=== PATIENT | male | born 1950 | race Caucasian/White ===

== ENCOUNTER 2017-01-24 06:07 | Inpatient (IN) | payer BC ==
--- NOTE | 2017-01-05 11:56 | PAT Medication Instructions ---
Service Date Jan 05, 2017. Current Home Medication List Aspirin (Aspirin Ec), 81 MG PO QAM Cholecalciferol (Vitamin D3), 1 TAB PO QAM Ibuprofen Tab (Advil), 400 MG PO PRN Lisinopril/Hctz (Zestoretic 20MG/12.5MG), 1 TAB PO BID Multivitamin (Multivitamin), 1 TAB PO QAM Omeprazole (Prilosec), 20 MG PO QAM Simvastatin (Zocor), 20 MG PO QPM Tramadol (Ultram), 50 MG PO QAM Medication Instructions For Your Scheduled Surgery - CHECK WITH YOUR SURGEON FOR INSTRUCTIONS FOR: Ibuprofen Tab (Advil), 400 MG PO PRN - Hold the following medications 24 hours prior to surgery--DO NOT TAKE THE NIGHT BEFORE OR THE MORNING OF THE SURGERY: Lisinopril/Hctz (Zestoretic 20MG/12.5MG), 1 TAB PO BID - Hold the following medications the morning of the surgery: Multivitamin (Multivitamin), 1 TAB PO QAM Cholecalciferol (Vitamin D3), 1 TAB PO QAM - Take the following medications the morning of surgery with a sip of water: Tramadol (Ultram), 50 MG PO QAM (if needed, can take up to four hours before surgery) Omeprazole (Prilosec), 20 MG PO QAM Aspirin (Aspirin Ec), 81 MG PO QAM - Take the following medications as scheduled the night before surgery: Simvastatin (Zocor), 20 MG PO QPM If you have any questions please call us at [phone] or [phone] or [phone]
--- NOTE | 2017-01-05 13:11 | DIAGNOSTIC IMAGING REPORT ---
CHEST PREADMISSION(PA/LAT) CLINICAL HISTORY: PAT preoperative evaluation COMPARISON STUDY: 04/30/2013 FINDINGS: The bones soft tissues and hemidiaphragms are normal. The cardiomediastinal silhouette is normal. The lungs are clear. The pulmonary vasculature is normal. IMPRESSION: Negative chest. The above report was generated using voice recognition software. It may contain grammatical, syntax or spelling errors. Electronically signed by: Andry Sparks M.D. 01/05/2017 1:10 PM Dictated Date/Time: 01/05/2017 1:10 PM
[2017-01-05 13:12] LABS: BASO % 0.7 %; BASO ABS # 0.06 K/uL (0-0.2); COMPLETE YES; EOS % 4.1 %; HEMATOCRIT 43.9 % (42-52); IG% 0.5 %; LYMPH % 39.3 %; LYMPH ABS # 3.23 K/uL (1.2-3.4); MEAN CELL VOLUME 86.6 fL (80-100); MEAN CORPUSCULAR HEMOGLOBIN 29.6 pg (25-34); MEAN CORPUSCULAR HGB CONC 34.2 g/dl (32-36); MEAN PLATELET VOLUME 11.9 fL (7.4-10.4); MONO % 7.1 %; NEUT % 48.3 %; PLATELET COUNT 204 K/uL (130-400); RED BLOOD COUNT 5.07 M/uL (4.7-6.1); WHITE BLOOD COUNT 8.21 K/uL (4.8-10.8)
[2017-01-05 13:23] LABS: CALCIUM 9.3 mg/dl (8.5-10.1); CREATININE 1.04 mg/dl (0.60-1.40); POTASSIUM 3.7 mmol/L (3.5-5.1)
[2017-01-05 13:32] LABS: URINE APPEARANCE CLEAR (CLEAR); URINE BILIRUBIN NEG (NEG); URINE COLOR YELLOW; URINE NITRITE NEG (NEG); URINE PH 7.5 (4.5-7.5); URINE SPECIFIC GRAVITY 1.018 (1.000-1.030); UROBILINOGEN NEG (NEG); ZZUR CULT IF INDIC CLEAN CATCH NO
[2017-01-05 13:38] LABS: MANUAL MICROSCOPIC REQUIRED? NO; REVIEW REQ? NO
[~2017-01-24] VITALS: Ht 177.8 cm; Wt 94.4 kg
[2017-01-24] VITALS (10 sets, daily range): BP systolic 99–151; BP diastolic 66–84; PULSE 60–67; TEMP 36.3–36.7; O2SAT 92–100; Ht 177.8 cm; Wt 94.4 kg
[~2017-01-24 06:07] MED LIST: ASPI81TA28 PO; CEFAZOLIN 2000MG IV PUSH 10 ML IV SCH; CHOL1000 PO; IBUP-103 PO; LACTATED RINGER'S 1000ML 1,000 ML IV SCH; LISI-787 PO; MULT-506 PO; PRLSR20 PO; SIMV20TA2 PO; TRAM-10 PO
[2017-01-24] MEDS ORDERED: MIDAZOLAM HCL 1 MG/ML 2ML VIAL ONE (06:29)
[2017-01-24] MEDS ORDERED: FENTANYL CITRATE INJ 50 MCG/1 ML 2 ML VIAL ONE ×3 (06:29→09:13)
[2017-01-24] MEDS ORDERED: BACITRACIN 50000 UNIT VIAL ONE (06:58)
[2017-01-24] MEDS ORDERED: BUPIVACAINE/EPINEPHRINE 0.5% MPF 1:200,000 30 ML VIAL ONE (06:58)
[2017-01-24] MEDS ORDERED: ONDANSETRON INJ 2 MG/ML 2 ML VIAL IV PRN ×2 (07:00→10:00)
[2017-01-24] MEDS ORDERED: ATROPINE SULFATE 0.1 MG/ML 5ML SYR IV PRN (07:00)
[2017-01-24] MEDS ORDERED: FENTANYL CITRATE INJ 50 MCG/1 ML 2 ML VIAL IV PRN (07:00)
[2017-01-24] MEDS ORDERED: EpHEDrine SULFATE INJ 50 MG/ML AMP IV PRN (07:00)
--- NOTE | 2017-01-24 07:26 | History & Physical Bridge Note ---
H&P Re-Evaluation Bridge Note: I have examined the patient, reviewed the History & Physical and in the interval since the performance of the History & Physical I have noted the following changes of clinical significance: No changes noted
--- NOTE | 2017-01-24 07:27 | History and Physical ---
History & Physical Date Jan 24, 2017. Chief Complaint Back and leg pain History of Present Illness The patient is a 66 year old male with complaints of back and leg pain Past Medical/Surgical History Medical Problems: (1) Hyperlipidemia (2) Hypertension (3) Kidney stones (4) Right knee DJD Surgical Problems: (1) History of hernia repair Additional History Hepatic Disease: No Endocrine Disorder: No Kidney Disease: No Hypertension: Yes Heart Disease: No Bleeding Tendencies: No Infectious Diseases: No Allergies Coded Allergies: Fish Allergy (Verified Allergy, Severe, ANAPHYLAXIS, 01/24/17) Hydrocodone (Verified Allergy, Intermediate, DIFFICULTY BREATHING,SOB, ) Cat Dander (Verified Allergy, Mild, SNEEZING RED EYES, 01/24/17) Home Medications Scheduled Aspirin (Aspirin Ec), 81 MG PO QAM Cholecalciferol (Vitamin D3), 1 TAB PO QAM Ibuprofen Tab (Advil), 400 MG PO PRN Lisinopril/Hctz (Zestoretic 20MG/12.5MG), 1 TAB PO BID Multivitamin (Multivitamin), 1 TAB PO QAM Omeprazole (Prilosec), 20 MG PO QAM Simvastatin (Zocor), 20 MG PO QPM Tramadol (Ultram), 50 MG PO QAM Physical Examination Skin: warm/dry, no rash Eyes: normal inspection, EOMI, sclerae normal ENT: normal ENT inspection, pharynx normal Head: normocephalic, atraumatic Neck: supple, no adenopathy, trachea midline Respiratory/Chest: lungs clear, normal breath sounds, no respiratory distress Cardiovascular: regular rate, rhythm, no edema, no murmur Abdomen / GI: normal bowel sounds, non tender Back: normal inspection Extremities: normal inspection, normal range of motion Neurologic/Psych: no motor/sensory deficits, alert, normal reflexes, oriented x 3 Diagnosis Lumbar spinal stenosis Plan of Treatment L3 to L5 lumbar decompression and fusion
[2017-01-24] MEDS ORDERED: HYDROmorphone INJ 2 MG/ML SYR/VIAL ONE ×2 (07:53→09:49)
[2017-01-24] MEDS ORDERED: LIDOCAINE HCL 2% 2 ML VIAL (20MG/ML) ONE (09:33)
[2017-01-24] MEDS ORDERED: DEXAMETHASONE SOD INJ 4 MG/ML VIAL ONE (09:33)
[2017-01-24] MEDS ORDERED: PROPOFOL IV EMULSION 10 MG/ML 20 ML VIAL IV ONE (09:33)
[2017-01-24] MEDS ORDERED: SODIUM CHLORIDE 0.9% 1000ML 1,000 ML IV SCH (09:47)
[2017-01-24] MEDS ORDERED: FLOSEAL HEMOSTATIC MATRIX 10ML TOP ONE (09:49)
[2017-01-24] MEDS ORDERED: LABETALOL HCL IV 5 MG/ML 20ML IV ONE (09:51)
[2017-01-24] MEDS ORDERED: ONDANSETRON INJ 2 MG/ML 2 ML VIAL ONE (09:51)
[2017-01-24] MEDS ORDERED: KETOROLAC TROMETHAMINE 30 MG/ML VIAL ONE (09:51)
[2017-01-24] MEDS ORDERED: ESMOLOL HCL 10 MG/ML 10 ML VIAL ONE (09:51)
[2017-01-24] MEDS ORDERED: GLYCOPYRROLATE INJ 0.2 MG/ML VIAL ONE (09:51)
[2017-01-24] MEDS ORDERED: NEOSTIGMINE METHYLSULFATE 1 MG/ML 10ML VIAL ONE (09:51)
--- NOTE | 2017-01-24 09:53 | [facility] Operative Report ---
Operative Report Operative Date Jan 24, 2017. Pre-Operative Diagnosis Lumbar spinal stenosis Post-Operative Diagnosis Lumbar spinal stenosis Procedure(s) Performed #1 lumbar decompression medial facetectomy foraminotomies L2 3 L3 4 L4 5. #2 posterior spinal fusion L3 4 L4 5. #3 posterior segmental transportation L3 4 L4 5. #4 interbody fusion L3 4 L4 5. #5 placement peek cage 12 x 26 L L3 4 and L4 5. #6 placement of locally harvested morcellized autograft in the posterior lateral gutters. #7 placement infuse collagen sponge combined with Master graft in the posterior lateral gutters and ostial amp in the interbody spaces. Surgeon Dr. Fuentes Building Equipment Operator Surgeon(s) June Callejas PA-C Estimated Blood Loss 200 ml Findings Severe spinal stenosis Specimens none per surgeon Description of Procedure Patient was met with preoperatively case discussed all questions were addressed. After informed consent was obtained patient was taken to the operative suite underwent intubation placed in a prone position Asaf table top Adam frame all bony promises well-padded eyes inspected to ensure there is no external pressure placed upon them. This point the lumbar spine was prepped and draped nostril fashion. Sharp dissection with the assistance of Bovie cautery was performed onto an exposing the lamina and transverse processes of L3-L4 and L5 bilaterally. From a caudal to cephalad fashion complete laminectomy of L4 L3 and partial laminectomy of L2 was performed addressing severe that her recess and foraminal stenosis. After this is complete pedicle screws are placed in L3 L4-L5 bilaterally with assistance of fluoroscopy the purposes cornelia placed. Through a trans-foraminal approach on the right a complete discectomy of L4 5 was performed and endplates curetted to subcortical bleeding bone. A 12 x 26 mm peek cage filled with ostial amp was tapped in position. Then proceeded to L34 and again a complete discectomy was performed through a transforaminal approach on the right. And plate created to subcortical bleeding bone and a 12 x 22 mm peek cage filled with ostial amp tapped into position. The rods were then compressed locked and final position bilaterally. The transverse processes of L3-L4 and L5 were burred to subcortical bleeding bone. Infuse collagen sponge mask graft locally harvested morcellized autograft was placed in the posterior gutters. 15 round JEAN PIERRE drain inserted. Incision was then closed with 1 Vicryl in the fascia 2-0 Vicryl subcutaneous tediously 4 Monocryl for final skin closure Steri-Strip sterile dressing was placed. Patient we can take PACU stable condition. Please note June Mariee was present at the entire procedure involved in patient positioning complex portions of the surgery and final skin closure. I attest to the content of the Intraoperative Record and any orders documented therein. Any exceptions are noted below.
--- NOTE | 2017-01-24 09:57 | DIAGNOSTIC IMAGING REPORT ---
LUMBAR SPINE 2 OR 3 VIEW CLINICAL HISTORY: L3-L5 LUMBAR DECOMPRESSION/FUSION postoperative evaluation TECHNIQUE: Image intensifier COMPARISON STUDY: None FINDINGS: Findings consistent with posterior laminectomy and fusion at L3-L4 and L5. Disc spaces are present at L3-L4 and L4-L5. Alignment is anatomic. IMPRESSION: Anatomic alignment status post posterior laminectomy and fusion L3-L5. The above report was generated using voice recognition software. It may contain grammatical, syntax or spelling errors. Electronically signed by: Andry Sparks M.D. 01/24/2017 9:55 AM Dictated Date/Time: 01/24/2017 9:55 AM
[2017-01-24] MEDS ORDERED: DO NOT ADMINISTER PNEUMOCOCCAL VACCINE PRN ×2 (10:00)
[2017-01-24] MEDS ORDERED: hydrOXYzine HCL 25 MG TAB PO PRN (10:00)
[2017-01-24] MEDS ORDERED: DO NOT ADMINISTER FLU VACCINE PRN ×3 (10:00)
[2017-01-24] MEDS ORDERED: ALUMINUM/MAGNESIUM SUSP 30 ML UDC PO PRN (10:00)
[2017-01-24] MEDS ORDERED: SOD PHOSPHATE/SOD BIPHOSPHATE ENEMA 132 ML BTL PR PRN (10:00)
[2017-01-24] MEDS ORDERED: ACETAMINOPHEN IV 100 ML IV PRN (10:00)
[2017-01-24] MEDS ORDERED: METOCLOPRAMIDE HCL INJ 5 MG/ML 2 ML VIAL IV PRN (10:00)
[2017-01-24] MEDS ORDERED: PROMETHAZINE HCL INJ 12.5 MG in SODIUM CHLORIDE 0.9% 50ML 50 ML IV PRN (10:00)
[2017-01-24] MEDS ORDERED: FAMOTIDINE 20 MG TAB PO PRN (10:00)
[2017-01-24] MEDS ORDERED: BISACODYL 10 MG SUPP PR PRN (10:00)
[2017-01-24] MEDS ORDERED: LORAZEPAM 0.5 MG TAB PO PRN (10:00)
[2017-01-24] MEDS ORDERED: MAGNESIUM HYDROXIDE SUSP 30 ML UDC PO PRN (10:00)
[2017-01-24] MEDS ORDERED: NALOXONE HCL 0.4 MG/1 ML VIAL/CARP IV PRN ×2 (10:00)
[2017-01-24] MEDS ORDERED: LORAZEPAM INJ 0.5 MG in SYRINGE 0 ML IV PRN (10:00)
[2017-01-24] MEDS ORDERED: HYDROmorphone HCL 0.5MG/ML 50 ML CASSETTE ONE (10:13)
--- NOTE | 2017-01-24 10:40 | Anesthesiology Progress Note ---
Anesthesia Post Op Note Date & Time Jan 24, 2017 at 10:40 Vital Signs Pain Intensity: 0 Vital Signs Past 12 Hours Date Time Temp Pulse Resp B/P (MAP) Pulse Ox O2 Delivery O2 Flow Rate FiO2 01/24/17 10:25 72 12 159/94 100 Oxymask 10 01/24/17 10:15 70 15 153/97 100 Oxymask 10 01/24/17 10:05 36.2 78 14 164/88 95 Oxymask 10 01/24/17 06:34 36.7 61 18 151/83 99 Room Air Notes Mental Status: alert / awake / arousable, participated in evaluation Pt Amnestic to Procedure: Yes Nausea / Vomiting: adequately controlled Pain: adequately controlled Airway Patency, RR, SpO2: stable & adequate BP & HR: stable & adequate Hydration State: stable & adequate Anesthetic Complications: no major complications apparent
[2017-01-24] MEDS: LACTATED RINGER'S 1000ML 1,000 ML IV SCH ×3 (12:01→23:46)
[2017-01-24] MEDS: DEXAMETHASONE INJ 6 MG in SYRINGE 0 ML IV SCH ×2 (13:54→21:31)
[2017-01-24] MEDS ORDERED: ROCURONIUM BROMIDE 10 MG/ML 5 ML VIAL IV ONE (14:04)
[2017-01-24] MEDS: CEFAZOLIN IV 2,000 MG in SYRINGE 0 ML IV SCH ×2 (15:40→23:46)
[2017-01-24] MEDS: HYDROmorphone HCL 0.5MG/ML 50 ML CASSETTE IV PRN ×2 (19:13→23:19)
[2017-01-24] MEDS: SIMVASTATIN 20 MG TAB PO SCH (21:31)
[2017-01-24] MEDS: LISINOPRIL/HCTZ 20/12.5MG TAB PO SCH (21:31)
[2017-01-24] MEDS: DOCUSATE SODIUM/SENNA 50/8.6MG TAB PO SCH (21:31)
[2017-01-25 04:00] VITALS: BP 99/60; PULSE 66; TEMP 36.7; O2SAT 94
[2017-01-25] MEDS ORDERED: HYDROmorphone INJ 1 MG/ML SYR IV PRN (06:00)
[2017-01-25] MEDS ORDERED: HYDROmorphone INJ 0.5 MG/0.5 ML SYR IV PRN (06:00)
[2017-01-25] MEDS ORDERED: DC PCA SCH (06:00)
[2017-01-25] MEDS: DEXAMETHASONE INJ 6 MG in SYRINGE 0 ML IV SCH (06:13)
[2017-01-25] MEDS ORDERED: NURSING VERBAL MED ORDER ONE (06:30)
[2017-01-25 07:05] VITALS: BP 103/64; PULSE 70; TEMP 36.6; O2SAT 96
[2017-01-25 07:12] LABS: BASO % 0.1 %; BASO ABS # 0.01 K/uL (0-0.2); COMPLETE YES; HEMATOCRIT 38.8 % (42-52); IG% 0.3 %; LYMPH % 9.3 %; LYMPH ABS # 1.77 K/uL (1.2-3.4); MEAN CELL VOLUME 86.8 fL (80-100); MEAN CORPUSCULAR HEMOGLOBIN 29.8 pg (25-34); MEAN CORPUSCULAR HGB CONC 34.3 g/dl (32-36); MEAN PLATELET VOLUME 11.1 fL (7.4-10.4); MONO % 4.4 %; NEUT % 85.9 %; PLATELET COUNT 182 K/uL (130-400); RED BLOOD COUNT 4.47 M/uL (4.7-6.1); WHITE BLOOD COUNT 19.07 K/uL (4.8-10.8)
[2017-01-25 07:40] LABS: BUN/CREATININE RATIO 19.7 (10-20); CALCIUM 8.1 mg/dl (8.5-10.1); CREATININE 1.23 mg/dl (0.60-1.40); POTASSIUM 3.9 mmol/L (3.5-5.1)
--- NOTE | 2017-01-25 07:41 | Anesthesiology Progress Note ---
Anesthesia Post Op Note Date & Time Jan 25, 2017 at 07:41 Vital Signs Pain Intensity: 1.0 Vital Signs Past 12 Hours Date Time Temp Pulse Resp B/P (MAP) Pulse Ox O2 Delivery O2 Flow Rate FiO2 01/25/17 07:05 36.6 70 16 103/64 (77) 96 Room Air 01/25/17 04:00 36.7 66 18 99/60 (73) 94 Room Air 01/24/17 23:45 Room Air 01/24/17 23:15 36.6 60 16 99/71 (80) 95 Room Air 01/24/17 21:29 65 113/70 (84) 01/24/17 19:59 36.3 66 17 106/67 (80) 95 Room Air Notes Mental Status: alert / awake / arousable, participated in evaluation Pt Amnestic to Procedure: Yes Nausea / Vomiting: adequately controlled Pain: adequately controlled Airway Patency, RR, SpO2: stable & adequate BP & HR: stable & adequate Hydration State: stable & adequate Anesthetic Complications: no major complications apparent
[2017-01-25] MEDS: TRAMADOL HCL 50 MG TAB PO SCH (08:37)
[2017-01-25] MEDS: OXYCODONE HCL IR 5 MG TAB (IMMEDIATE RELEASE) PO PRN ×3 (08:40→20:15)
[2017-01-25] MEDS: PANTOprazole SOD 40 MG TAB PO SCH (08:40)
[2017-01-25] MEDS: LISINOPRIL/HCTZ 20/12.5MG TAB PO SCH ×2 (08:40→21:07)
[2017-01-25] MEDS: ASPIRIN 81 MG ECTAB PO SCH (08:41)
[2017-01-25] MEDS ORDERED: RXC5 PO (09:08)
--- NOTE | 2017-01-25 09:08 | Discharge Instructions ---
Discharge Instructions Date of Service Jan 25, 2017. Admission Reason for Admission: Lumbar Spinal Stenosis Discharge Discharge Diagnosis / Problem: lumbar stenosis Discharge Goals Goal(s): Improve function Activity Recommendations Activity Limitations: per Instructions/Follow-up section . Instructions / Follow-Up Instructions / Follow-Up ACTIVITY RECOMMENDATIONS: SELF CARE INSTRUCTIONS AFTER THORACIC/LUMBAR FUSIONS 1. You may walk to your tolerance. It is good exercise for your legs and back. Expect some back and intermittent leg aches and pains. 2. You may perform "counter-top" level activities (make a sandwich, art with a project, etc.). 3. No bending or lifting of more than 10 pounds or back twisting of any nature (roll like a log when turning in bed). 4. You may ride in a car for 20-30 minutes at a time. No driving until after your first visit with your doctor. 5. Frequent changes of position and restricting sitting to 30 minutes at a time will help limit the amount of back spasms and stiffness you may experience. 6. You may discontinue the use of ambulatory aids (cane, crutches, etc.) once your strength and confidence allow. 7. You may electric meter installer helper the shower and let water strike your incision when you arrive home at least once daily. Do not take a tub bath, sit in a hot tub or go into a swimming pool until after your first recheck in the office. SPECIAL CARE INSTRUCTIONS: VERY IMPORTANT TO READ AND REVIEW A. Your surgical incision has been closed with a cosmetic suture under the skin that will dissolve in about 6 weeks. In 14 days, you can use a pair of clean scissors and cut the suture that is left outside of the skin at the ends of your incision. 1. The small skin tapes can be removed 7 days after surgery if they have not fallen off by that point. 2. You may keep the wound open to air as much as possible to promote healing after post-op day number 5 unless told otherwise by your doctor. 3. If you think the wound looks like it is becoming infected (redness or worsening drainage) and/or you are experiencing fever, chill or worsening back pain and muscle spasms, contact the office so that we may evaluate you as soon as possible. B. Complications are uncommon, but please contact us if you have any signs or symptoms of: 1. wound infection (fever higher than 102.5 degrees F, redness, separation of wound, drainage, or increasing pain from the incision) 2. blood clots in legs (pain, swelling, redness and warmth in legs) 3. urinary tract infection (fever higher than 102.5 degrees F, burning upon urination or increased frequency of urination) 4. nerve problems (inability to walk on your toes or heels, numbness, loss of bowel or bladder control) 5. any other symptoms that concern you C. Please call the office at if you have any concerns or questions about your operation or recovery. D. No smoking! Smoking drastically decreases the chance of a solid fusion. E. Do not take any anti-inflammatory medications (Indocin, Advil, Motrin, Aspirin, Naprosyn, etc.) as these may inhibit the chance of a solid fusion. Tylenol is okay to take for pain. MANAGING PAIN AFTER SPINAL SURGERY 1. Narcotic medication is intended for short-term use and will be provided for surgical pain. Surgical pain usually lasts for a period of 4-6 weeks. Narcotic medication includes Percocet, Vicodin, Darvocet, Tylenol #3 or Lortab. 2. Longer-term pain is more appropriately treated with non-narcotic medication such as Tylenol ES. 3. Muscle spasm is not appropriately treated with narcotics. Muscle relaxers such as Soma, Flexeril or Skelaxin can be used along with Tylenol ES. 4. Remember that we all live with some "aches and pains". This is not unusual or uncommon after an injury or as we get older. a. Back pain is expected and may include muscle spasms for 4 to 6 weeks after surgery. The pain should gradually improve. If the pain worsens for no apparent reason, please contact the office. b. Intermittent leg pain may also be experienced and should not be concerned about unless it worsens for no apparent reason. If so, please contact the office. 5. We will provide appropriate medication within the normal guidelines of their prescribed use. We will also be very cautious and aware of potential abuse and extended duration of patients' medication needs. a. Pain medications are for your comfort and to assist with sleep and rest so that the tissue can heal. They are not provided in order to return to normal activity and should not be used through the day. To do so or worsening pain at night can result from ongoing tissue damage and development of tolerance to the prescribed medicine. 6. Please allow 2-3 days to process refills. Prescriptions will not be mailed but must be picked up at the office. FOLLOW UP VISIT: Keep your scheduled follow-up appointment. Any questions, please call the office at . Current Hospital Diet Patient's current hospital diet: Regular Diet Discharge Diet Recommended Diet: Regular Diet Procedures Procedures Performed: #1 lumbar decompression medial facetectomy foraminotomies L2 3 L3 4 L4 5. #2 posterior spinal fusion L3 4 L4 5. #3 posterior segmental transportation L3 4 L4 5. #4 interbody fusion L3 4 L4 5. #5 placement peek cage 12 x 26 L L3 4 and L4 5. #6 placement of locally harvested morcellized autograft in the posterior lateral gutters. #7 placement infuse collagen sponge combined with Master graft in the posterior lateral gutters and ostial amp in the interbody spaces. Pending Studies Studies pending at discharge: no Medical Emergencies . Who to Call and When: Medical Emergencies: If at any time you feel your situation is an emergency, please call 911 immediately. . Non-Emergent Contact Non-Emergency issues call your: Primary Care Provider . "Provider Documentation" section prepared by Mickey Fuentes. . VTE Core Measure Inpt VTE Proph given/why not?: Jennifer Gonzalez, IVIS's
[2017-01-25] MEDS ORDERED: KETOROLAC TROMETHAMINE 30 MG/ML VIAL IV PRN (09:30)
--- NOTE | 2017-01-25 12:47 | Progress Note ---
Progress Note Date of Service Jan 25, 2017. Progress Note Patient is status post lumbar decompression fusion. Back pain is controlled. Leg pain markedly improved. On exam he is sitting in chair at bedside as good strength testing appears comfortable. Assessment status post lumbar decompression fusion replant this time will continue with activity as tolerated advance his bowel regimen anticipate home the next day or so.
[2017-01-25 15:27] VITALS: BP 118/68; PULSE 68; TEMP 36.5; O2SAT 99
[2017-01-25] MEDS: ACETAMINOPHEN 500 MG TAB PO PRN (15:40)
[2017-01-25] MEDS: DOCUSATE SODIUM/SENNA 50/8.6MG TAB PO SCH (21:05)
[2017-01-25] MEDS: SIMVASTATIN 20 MG TAB PO SCH (21:05)
[2017-01-25 23:06] VITALS: BP 130/79; PULSE 74; TEMP 36.7; O2SAT 97
[2017-01-26] MEDS: ACETAMINOPHEN 500 MG TAB PO PRN (00:19)
[2017-01-26] MEDS: OXYCODONE HCL IR 5 MG TAB (IMMEDIATE RELEASE) PO PRN ×4 (00:19→12:50)
[2017-01-26] MEDS: POLYETHYLENE (MIRALAX) 17 GM PACK PO SCH ×2 (05:54→12:50)
[2017-01-26 07:40] VITALS: BP 118/78; PULSE 68; TEMP 36.5; O2SAT 99
[2017-01-26 08:13] VITALS: O2SAT 99
[2017-01-26] MEDS: TRAMADOL HCL 50 MG TAB PO SCH (08:58)
[2017-01-26] MEDS: LISINOPRIL/HCTZ 20/12.5MG TAB PO SCH (08:58)
[2017-01-26] MEDS: PANTOprazole SOD 40 MG TAB PO SCH (08:58)
[2017-01-26] MEDS: ASPIRIN 81 MG ECTAB PO SCH (08:58)
[2017-01-26 09:34] VITALS: BP 118/78; PULSE 68; TEMP 36.5; O2SAT 99
[2017-01-26 11:39] VITALS: BP_SYST 146; BP_SYST 147; BP_DIAS 83; BP_DIAS 92; PULSE 64; TEMP 36.6; O2SAT 100
--- NOTE | 2017-01-26 11:44 | Discharge Summary ---
Orthopedic Discharge Summary Admission Date/Reason Jan 24, 2017 at 07:30 Lumbar Spinal Stenosis. Discharge Date/Disposition Jan 26, 2017 Home Diagnosis Principal Diagnosis: Lumbar spinal stenosis Admission Physical Exam As per Admitting History & Physical. Hospital Course Patient underwent lumbar decompression fusion tolerated this well as taken to the orthopedic floor postop we. Postoperative day #1 he was up and amatory progressed nicely through postoperative day #2. Leg pain markedly improved. JEAN PIERRE drain decreasing appropriately. Substernally discharge home. Discharge orders and instructions found on the chart for further review. Discharge Instructions Please refer to the electronic Patient Visit Report (Discharge Instructions) for additional information.
== END 2017-01-26 14:20 | disposition home or self-care (01) | DRG 455 ==
LOC: C.ACU 06:07 → C.3E 07:30 → ENRESERV 10:29
PROVIDERS: ADMIT Orthopaedic Surgery Orthopaedic Surgery of the Spine; ATTEND Orthopaedic Surgery Orthopaedic Surgery of the Spine
PROC: 0ST20ZZ Resection of Lumbar Vertebral Disc, Open Approach (ICD-10-PCS; principal; 2017-01-24 07:45)
PROC: 0SG1071 Fusion of 2 or more Lumbar Vertebral Joints with Autologous Tissue Substitute, Posterior Approach, Posterior Column, Open Approach (ICD-10-PCS; principal; 2017-01-24 07:45)
PROC: 0SG10AJ Fusion of 2 or more Lumbar Vertebral Joints with Interbody Fusion Device, Posterior Approach, Anterior Column, Open Approach (ICD-10-PCS; principal; 2017-01-24 07:45)
DX: M48.061 Spinal stenosis, lumbar region without neurogenic claudication (principal); E78.5 Hyperlipidemia, unspecified; I10 Essential (primary) hypertension; Z79.899 Other long term (current) drug therapy; Z79.82 Long term (current) use of aspirin

== ENCOUNTER 2019-04-04 06:01 | Inpatient (IN) ==
--- NOTE | 2019-03-13 13:15 | PAT Medication Instructions ---
Medication Instructions Date of Service March 13, 2019 Home Medications aspirin [Aspirin Low Dose] 81 mg PO QAM calcium carbonate [Tums Ultra] 1,177 mg PO DAILY PRN cholecalciferol (vitamin D3) [Vitamin D3] 25 mcg PO QAM doxycycline hyclate 50 mg PO QPM ibuprofen [Advil] 200 mg PO Q6H PRN lisinopril-hydrochlorothiazide 1 tab PO BID [id number]-UA-lycopen-lutein [Centrum Silver Men] 1 tab PO QAM simvastatin 20 mg PO PM ASK your surgeon for instructions ibuprofen [Advil] 200 mg PO Q6H PRN STOP taking 2 weeks before surgery [id number]-FV-lycopen-lutein [Centrum Silver Men] 1 tab PO QAM DO NOT take the morning of surgery calcium carbonate [Tums Ultra] 1,177 mg PO DAILY PRN cholecalciferol (vitamin D3) [Vitamin D3] 25 mcg PO QAM lisinopril-hydrochlorothiazide 1 tab PO BID Take morning of surgery With a small sip of water, OTHERWISE NOTHING TO EAT OR DRINK AFTER MIDNIGHT: aspirin [Aspirin Low Dose] 81 mg PO QAM Take evening before surgery calcium carbonate [Tums Ultra] 1,177 mg PO DAILY PRN (if needed) doxycycline hyclate 50 mg PO QPM lisinopril-hydrochlorothiazide 1 tab PO BID simvastatin 20 mg PO PM Other Notes If you have any questions please call us at [phone] or [phone] or [phone] or [phone]
--- NOTE | 2019-03-13 14:01 | Anesthesiology Consultation ---
Date of Service March 13, 2019 Assessment & Plan (1) Encounter for pre-operative examination: Chart Review Chart Review: Acceptable Risk for Surgery (PENDING PRE OP TESTING --LABS, EKG, CXR AND SURGEON ORDERED PCP CLEARANCE 03/12) and Patient seen in Pre Admission Testing Teaching & Discussion Instructed NPO after midnight before surgery, except medications with 15 cc of water. Medication instructions provided according to the PAT guidelines. History Surgery Operation Date: 04/04/19 07:00 Proposed Procedures p Left Total Knee Arthroplasty - Florentino Conrad DO Height/Weight Height: 5 ft 10 in Weight: 98.2 kg Allergies Allergy/AdvReac Type Severity Reaction Status Date / Time Fish Containing Products Allergy Severe ANAPHYLAXIS Verified 03/09/19 15:05 hydrocodone Allergy Intermediate DIFFICULTY Verified 03/09/19 15:05 BREATHING,SOB cat dander Allergy Mild SNEEZING Verified 03/09/19 15:05 RED EYES Medications Home Medications Medication Instructions Recorded Confirmed Last Taken aspirin [Aspirin Low Dose] 81 mg PO QAM 03/09/19 03/09/19 Unknown calcium carbonate [Tums Ultra] 1,177 mg PO DAILY PRN 03/09/19 03/09/19 Unknown cholecalciferol (vitamin D3) 25 mcg PO QAM 03/09/19 03/09/19 Unknown [Vitamin D3] doxycycline hyclate 50 mg PO QPM 03/09/19 03/09/19 Unknown ibuprofen [Advil] 200 mg PO Q6H PRN 03/09/19 03/09/19 Unknown lisinopril-hydrochlorothiazide 1 tab PO BID 03/09/19 03/09/19 Unknown ppaylqbs-sfj-EU-lycopen-lutein 1 tab PO QAM 03/09/19 03/09/19 Unknown [Centrum Silver Men] simvastatin 20 mg PO PM 03/09/19 03/09/19 Unknown Past Medical History Medical History DJD (degenerative joint disease) of knee GERD (gastroesophageal reflux disease) History of kidney stones Hx of skin cancer, basal cell TOP OF HEAD Hyperlipidemia Hypertension Sleep apnea CPAP Stye RIGHT Exercise / Class Metabolic Activity II 4-5 Yardwork/Stairs/Walk up hill (Denies CP or SOB with 1 FOS, was walking 1- 2 miles per day prior to such severe knee pain) Past Family History Family History (Updated 03/09/19 @ 15:14 by Shae Palemr RN) Mother Family history of diabetes mellitus Past Surgical History Surgical History History of back surgery History of total right knee replacement Hx of colonoscopy Hx of cystoscopy FOR STONE REMOVAL - HAD STENT PLACED AND GTHEN REMOVED Hx of hernia repair X2 Hx of lithotripsy Past Anesthesia History No Hx of Anesthesia Complications and No Family Hx of Anesthesia Complications History of PONV No Hx of PONV and No Hx of Motion Sickness Social History Smoking Status: Never smoker Do You Dip or Chew Tobacco: No Hx Alcohol Use: Yes alcohol intake frequency: holidays/special occasions only Hx Substance Use: No Review of Systems Pt denies any recent chest pain, shortness of breath, palpitations, cough, fever or URI. Physical Exam Vital Signs BP: 122/78 P: 60bpm SPO2: 98% RA T: 98.0 F R: 14 ENMT Mouth: + dental restorations (1-2 crowns); no chipped teeth and no loose teeth Thyromental Distance: < 3.5 Finger Breadths (3) Mallampati Class: III Neck normal visual inspection and + facial hair (short mustache and goatee); neck extension not limited Respiratory normal respiratory effort Auscultation: lungs clear to auscultation bilaterally Cardiovascular Rate/Rhythm: regular rhythm and + bradycardic Heart Sounds: no murmur Vessels: no carotid bruit
--- NOTE | 2019-03-13 14:42 | XRay Report ---
XR chest Pre-admission PA/Lat CLINICAL HISTORY: pat preoperative evaluation COMPARISON STUDY: 01/05/2017 FINDINGS: The bones soft tissues and hemidiaphragms are normal. The cardiomediastinal silhouette is n ormal. The lungs are clear. The pulmonary vasculature is normal. IMPRESSION: Negative chest. ACT 112: Negative or not required by law. The above report was generated using voice recognition software. It may contain grammatical, syntax or spelling errors. Electronically signed by: Andry Sparks M.D. 03/13/2019 2:41 PM
--- NOTE | 2019-03-13 14:56 | Electrocardiogram Report ---
Test Reason : Blood Pressure : / mmHG Vent. Rate : 068 BPM Atrial Rate : 068 BPM P-R Int : 178 ms QRS Dur : 086 ms QT Int : 418 ms P-R-T Axes : 069 063 071 degrees QTc Int : 444 ms Normal sinus rhythm Normal ECG When compared with ECG of 05-JAN-2017 12:05, No significant change was found Confirmed by Juancho Stephen ([id number]) on 03/13/2019 2:55:55 PM Referred By: Florentino Conrad Confirmed By:Juancho Stephen
[2019-03-13 16:10] LABS: Albumin Level 3.6 gm/dl (3.4-5.0); BUN Creatinine Ratio 17.3 (10-20); Calcium 9.5 mg/dl (8.5-10.1); Creatinine Clr Calc Pharmacy 69.4 ml/min; Est GFR (African American) 70.5; Est GFR (Non-African American) 60.8; Potassium 3.4 mmol/L (3.5-5.1)
[2019-03-13 16:11] LABS: Appearance Urine Clear (Clear); Bilirubin Urine Negative (Negative); Blood Urine Negative (Negative); Color Urine Yellow; Glucose Urine UA Negative (Negative); Ketones Urine Negative (Negative); Leukocyte Esterase Urine Negative (Negative); Nitrite Urine Negative (Negative); Protein Urine Negative (Negative); Specific Gravity Urine 1.016 (1.000-1.030); Urobilinogen Urine Negative (Negative)
[2019-03-13 16:13] LABS: Basophils # (auto) 0.05 K/uL (0-0.2); Basophils % (auto) 0.7 %; Eosinophils # (auto) 0.34 K/uL (0-0.5); Eosinophils % (auto) 4.5 %; Hematocrit (blood only) 43.3 % (42-52); Hemoglobin 15.1 g/dL (14.0-18.0); Immature Granulocytes # (auto) 0.04 K/uL (0.00-0.02); Immature Granulocytes % (auto) 0.5 %; Lymphocytes # (auto) 2.77 K/uL (1.2-3.4); Mean Corpuscular Hemoglobin 29.9 pg (25-34); Mean Corpuscular Hgb Conc 34.9 g/dL (32-36); Mean Corpuscular Volume 85.7 fL (80-100); Mean Platelet Volume 11.7 fL (7.4-10.4); Monocytes # (auto) 0.47 K/uL (0.11-0.59); Monocytes % (auto) 6.3 %; Neutrophils # (auto) 3.81 K/uL (1.4-6.5); Platelet Count 193 K/uL (130-400); RDW Coefficient of Variation 14.5 % (11.5-14.5); RDW Standard Deviation 44.3 fL (36.4-46.3); Red Blood Count 5.05 M/uL (4.7-6.1); White Blood Count 7.48 K/uL (4.8-10.8)
[2019-03-13 16:19] LABS: INR 1.1 (0.9-1.1); Partial Thromboplastin Ratio 0.9; Partial Thromboplastin Time 25.4 Seconds (21.0-31.0); Prothrombin Time 10.9 Seconds (9.0-12.0)
[2019-03-14 05:37] LABS: Estimated Average Glucose 126 mg/dl
--- NOTE | 2019-03-23 09:11 | History & Physical Report ---
Date of Service March 23, 2019 date of surgery: 04-04-19 Assessment & Plan (1) Arthritis of knee, left: Further care discussed with patient and at this point in time has failed conservative measures and would like to proceed with a left total knee replacement. Plan on discharge will be home with home health physical therapy. DVT prophalaxis with TEDs, SCDs and will also place on aspirin 81 mg p.o. b.i.d. for a month postop. Patient will have follow up appointment in our office two weeks post op for staple/suture removal and re-evaluation. Patient otherwise has no other questions or concerns. History of Present Illness Chief Complaint: left knee pain Primary Care Provider: Sanjana Pan MD Mr Johnson is a 68 year old male who complains of left knee pain, presents for pre-op evaluation prior to a left total knee replacement by dr Conrad at [facility]. He complains of pain, crepitus, decreased range of motion, instability and stiffness in the left knee. He states that the symptoms have been chronic and non-traumatic. He states that the symptoms occur constantly with intermittent worsening. Currently the patient states that the symptoms are moderate-severe. The pain is described as aching, sharp and throbbing. The symptoms occur continuously. The symptoms are aggravated by ascending stairs, daily activities, first steps while awake walking. Prior NSAIDs include IBU and Aleve. He has been treated with previous cortisone and visco injections in the past without much relief. Allergies Allergy/AdvReac Type Severity Reaction Status Date / Time Fish Containing Products Allergy Severe ANAPHYLAXIS Verified 03/09/19 15:05 hydrocodone Allergy Intermediate DIFFICULTY Verified 03/09/19 15:05 BREATHING,SOB cat dander Allergy Mild SNEEZING Verified 03/09/19 15:05 RED EYES Home Medications Home Medications Medication Instructions Recorded Confirmed Type aspirin [Aspirin Low Dose] 81 mg PO QAM 03/09/19 03/09/19 History calcium carbonate [Tums Ultra] 1,177 mg PO DAILY PRN 03/09/19 03/09/19 History cholecalciferol (vitamin D3) 25 mcg PO QAM 03/09/19 03/09/19 History [Vitamin D3] doxycycline hyclate 50 mg PO QPM 03/09/19 03/09/19 History ibuprofen [Advil] 200 mg PO Q6H PRN 03/09/19 03/09/19 History lisinopril-hydrochlorothiazide 1 tab PO BID 03/09/19 03/09/19 History ufaevyqn-jnh-LG-lycopen-lutein 1 tab PO QAM 03/09/19 03/09/19 History [Centrum Silver Men] simvastatin 20 mg PO PM 03/09/19 03/09/19 History Past Med/Surg History Medical History DJD (degenerative joint disease) of knee GERD (gastroesophageal reflux disease) History of kidney stones Hx of skin cancer, basal cell TOP OF HEAD Hyperlipidemia Hypertension Sleep apnea CPAP Stye RIGHT Surgical History History of back surgery History of total right knee replacement Hx of colonoscopy Hx of cystoscopy FOR STONE REMOVAL - HAD STENT PLACED AND GTHEN REMOVED Hx of hernia repair X2 Hx of lithotripsy Family History Mother Family history of diabetes mellitus Social History Preferred Language: Nicaraguan Communication Ability: Effective Beliefs That Will Affect Care: None Current Living Situation: Spouse Feels Safe at Home: Yes Safety Concerns: Feels Safe At This Time Smoking Status: Never smoker Do You Dip or Chew Tobacco: No ; Second Hand Exposure: Yes (SOCIALLY) ; Hx Alcohol Use: Yes Hx Substance Use: No Review of Systems Review of Systems: All systems reviewed & are unremarkable except as noted in HPI & below Constitutional: no fever, no chills and no sweats Respiratory: no cough and no dyspnea Cardiovascular: no chest pain, no dyspnea and no orthopnea Gastrointestinal: no abdominal pain, no nausea and no vomiting Musculoskeletal: as per Subjective / HPI Physical Exam Constitutional: WD/WN, vitals as above no acute distress Respiratory: normal respiratory effort, lungs clear to auscultation no respiratory distress, no labored breathing and does not use accessory muscles Cardiovascular: RRR, no murmur, no edema Gastrointestinal (Abdomen): normal bowel sounds, soft, nontender, no hepatosplenomegaly Musculoskeletal: Knee: + knee abnormal to inspection (left knee), + effusion (+1 effusion), + surgical incision (well healed portals), + limited ROM of knee (ROM 0/3/110), + knee ROM with crepitation, + joint line tenderness (medial joint line) and + Yudith's sign positive; no deformity, no skin erythema, no ecchymosis, no valgus laxity, no varus laxity, anterior drawer test negative, Mini's sign negative and pivot shift test negative Results & Data Laboratory Results Laboratory Results WBC 7.48 K/uL (4.8-10.8) 03/13/19 13:50 RBC 5.05 M/uL (4.7-6.1) 03/13/19 13:50 Hgb 15.1 g/dL (14.0-18.0) 03/13/19 13:50 Hct 43.3 % (42-52) 03/13/19 13:50 MCV 85.7 fL (80-100) 03/13/19 13:50 MCH 29.9 pg (25-34) 03/13/19 13:50 MCHC 34.9 g/dL (32-36) 03/13/19 13:50 RDW Std Deviation 44.3 fL (36.4-46.3) 03/13/19 13:50 RDW Coeff of Francis 14.5 % (11.5-14.5) 03/13/19 13:50 Plt Count 193 K/uL (130-400) 03/13/19 13:50 MPV 11.7 fL (7.4-10.4) H 03/13/19 13:50 Immature Gran % (Auto) 0.5 % 03/13/19 13:50 Neut % (Auto) 51.0 % 03/13/19 13:50 Lymph % (Auto) 37.0 % 03/13/19 13:50 Dickinson % (Auto) 6.3 % 03/13/19 13:50 Eos % (Auto) 4.5 % 03/13/19 13:50 Baso % (Auto) 0.7 % 03/13/19 13:50 Immature Gran # (Auto) 0.04 K/uL (0.00-0.02) H 03/13/19 13:50 Neut # (Auto) 3.81 K/uL (1.4-6.5) 03/13/19 13:50 Lymph # (Auto) 2.77 K/uL (1.2-3.4) 03/13/19 13:50 Dickinson # (Auto) 0.47 K/uL (0.11-0.59) 03/13/19 13:50 Eos # (Auto) 0.34 K/uL (0-0.5) 03/13/19 13:50 Baso # (Auto) 0.05 K/uL (0-0.2) 03/13/19 13:50 PT 10.9 Seconds (9.0-12.0) 03/13/19 13:50 INR 1.1 (0.9-1.1) 03/13/19 13:50 APTT 25.4 Seconds (21.0-31.0) 03/13/19 13:50 PTT Ratio 0.9 03/13/19 13:50 Sodium 140 mmol/L (136-145) 03/13/19 13:50 Potassium 3.4 mmol/L (3.5-5.1) L 03/13/19 13:50 Chloride 103 mmol/L (98-107) 03/13/19 13:50 Carbon Dioxide 33 mmol/L (21-32) H 03/13/19 13:50 Anion Gap 4.0 (3-11) 03/13/19 13:50 BUN 21 mg/dl (7-18) H 03/13/19 13:50 Creatinine 1.23 mg/dl (0.6-1.4) 03/13/19 13:50 Est Cr Clr Drug Dosing 69.4 ml/min 03/13/19 13:50 Est GFR ( Amer) 70.5 03/13/19 13:50 Est GFR (Non-Af Amer) 60.8 03/13/19 13:50 BUN/Creatinine Ratio 17.3 (10-20) 03/13/19 13:50 Glucose 106 mg/dl (70-99) H 03/13/19 13:50 Estimat Average Glucose 126 mg/dl 03/13/19 13:50 Hemoglobin A1c 6.0 % (4.5-5.6) H 03/13/19 13:50 Calcium 9.5 mg/dl (8.5-10.1) 03/13/19 13:50 Albumin 3.6 gm/dl (3.4-5.0) 03/13/19 13:50 Urine Color Yellow 03/13/19 Unknown Urine Appearance Clear (Clear) 03/13/19 Unknown Urine pH 7.0 (4.5-7.5) 03/13/19 Unknown Ur Specific [place] 1.016 (1.000-1.030) 03/13/19 Unknown Urine Protein Negative (Negative) 03/13/19 Unknown Urine Glucose (UA) Negative (Negative) 03/13/19 Unknown Urine Ketones Negative (Negative) 03/13/19 Unknown Urine Blood Negative (Negative) 03/13/19 Unknown Urine Nitrite Negative (Negative) 03/13/19 Unknown Urine Bilirubin Negative (Negative) 03/13/19 Unknown Urine Urobilinogen Negative (Negative) 03/13/19 Unknown Ur Leukocyte Esterase Negative (Negative) 03/13/19 Unknown Blood Type O Positive 03/13/19 13:50 Antibody Screen NEGATIVE 03/13/19 13:50 Diagnostic Findings Left Knee X-ray confirms advanced degenerative changes to the left knee, greatest medial compartments and patellofemoral joint, showing joint space narrowing, osteophyte formation and subchondral sclerosis. no acute bony pathology noted.
[~2019-04-04 06:01] MED LIST changes: +ACETAMINOPHEN 500 MG TAB PO SCH; -ASPI81TA28 PO; +CEFAZOLIN 2000MG 2,000 MG/15 ML SYR IV SCH; -CEFAZOLIN 2000MG IV PUSH 10 ML IV SCH; -CHOL1000 PO; +CeleBREX 200 MG CAP PO SCH; +FAMOTIDINE 20 MG TAB PO SCH; +GABAPENTIN 300 MG CAP PO SCH; -IBUP-103 PO; -LACTATED RINGER'S 1000ML 1,000 ML IV SCH; -LISI-787 PO; +LR 500ML BOLUS, THEN 15ML/HR IV SCH; +METOCLOPRAMIDE HCL 10 MG TABLET PO SCH; -MULT-506 PO; -PRLSR20 PO; +ROPIVACAINE 0.5% HCL/PF 150 MG, BUPIVACAINE 0.5% MPF 30 ML, EPINEPHrine 30MG/30ML (OR U... INSTIL SCH; -SIMV20TA2 PO; -TRAM-10 PO; +TRANEXAMIC ACID 1,000 MG **IV Intra-op IV SCH; +TRANEXAMIC ACID 1,000 MG **IV Pre-op IV SCH; +dexAMETHasone 4 MG TAB PO SCH
[2019-04-04] MEDS ORDERED: BUPIVACAINE 0.5 % 5 MG/1 ML PF 10ML VIAL ONE (06:23)
[2019-04-04] MEDS ORDERED: DEXAMETHASONE SOD INJ 4 MG/ML VIAL ONE (06:24)
[2019-04-04] MEDS ORDERED: BUPIVACAINE/EPINEPHRINE 0.25% 1:200,000 30 ML VIAL ONE (06:24)
[2019-04-04] MEDS ORDERED: MIDAZOLAM HCL 1 MG/ML 2ML VIAL ONE (06:45)
[2019-04-04] MEDS ORDERED: fentaNYL citrate 100 MCG/2 ML VIAL ONE (06:45)
[2019-04-04] MEDS ORDERED: LIDOCAINE HCL 2% 2 ML VIAL/AMP(20MG/ML) INFIL ONE (06:54)
[2019-04-04] MEDS ORDERED: PROPOFOL IV EMULSION 10 MG/ML 20 ML VIAL IV ONE ×2 (06:54→09:29)
--- NOTE | 2019-04-04 07:02 | History & Physical Bridge Note ---
Date of Service April 04, 2019 History & Physical Bridge Note I have examined the patient, reviewed the History & Physical and in the interval since the performance of the History & Physical I have noted the following changes of clinical significance: no changes noted
[2019-04-04] MEDS ORDERED: BACITRACIN INJ 50,000 UNIT VIAL ONE (07:12)
[2019-04-04] MEDS ORDERED: ORTHO JOINT ANESTHETIC ONE (07:12)
[2019-04-04] MEDS ORDERED: fentaNYL citrate 100 MCG/2 ML VIAL IV PRN (07:31)
[2019-04-04] MEDS ORDERED: ATROPINE SULFATE 0.1 MG/ML 10ML SYR IV PRN (07:31)
[2019-04-04] MEDS ORDERED: ePHEDrine sulfate 50 MG/ML AMP IV PRN (07:31)
[2019-04-04] MEDS ORDERED: ONDANSETRON INJ 2 MG/ML 2 ML VIAL IV PRN ×2 (07:31→11:29)
[2019-04-04] MEDS ORDERED: ePHEDrine sulfate 50 MG/ML SYR ONE (08:51)
[2019-04-04] MEDS ORDERED: ONDANSETRON INJ 2 MG/ML 2 ML VIAL ONE (09:29)
--- NOTE | 2019-04-04 09:41 | Operative Report ---
Post Operative Report Pre & Post Diagnosis Operation Date: 04/04/19 08:20 Pre-Op Diagnosis: Osteoarthritis, Left Knee Post-Op Diagnosis: Osteoarthritis, Left Knee I identified the patient and participated in the time-out.: Yes Procedure Operation Date: 04/04/19 08:20 Actual Procedures p Left Total Knee Arthroplasty(Left) utilizing Rod & NephHemosphere journey 2 patient matched total knee arthroplasty size 6 femur size 5 tibia size 10 poly-/32 oval patella- Florentino Conrad DO Surgeon Florentino Conrad DO Rn Pain Management Karl NAIK Estimated Blood Loss 5 Findings Consistent with Post-Op Diagnosis Patient presents with severe end-stage tricompartmental degenerative joint disease left knee no response to conservative management patient is a failed attempts at the conservative management the patient had subchondral sclerosis cystic changes subchondral cystic changes eburnated bone marginal osteophytes varus alignment with a 3 degree flexion contracture Specimens Bone and cartilage Anesthesia Type MAC Spinal Regional Complications none Disposition Accompanied Patient To Recovery: No Disposition: Recovery Room Indications Patient presents with severe DJD of the left knee no response to conservative management above intraoperative findings noted patient fell attempted conservative management clinic physical therapy anti-inflammatories relative rest activity modification corticosteroid injection Visco supplementation the above intraoperative findings were noted Description of Procedure After proper prepping and draping of the left lower extremity anterior midline incision was made over the region of the extensor extensor mechanism after meticulous hemostasis was obtained and maintained in subcutaneous tissues a medial parapatellar incision was made The patella was subluxed lateralward the medial lateral gutter were cleaned from any hypertrophic synovitis and scar tissue of the distal femoral block was placed and the distal femoral osteotomy cut was made subsequently the chamfers anterior and posterior osteotomy cuts were made utilizing the 4-in-1 block the tibia was subsequently subluxed anteriorward medial and ateral meniscal remnants were excised in their entirety remnants of the anterior and posterior cruciate ligaments were excised in their entirety excellent exposure of the proximal tibia was obtained the tibial osteotomy guide was placed on the proximal tibial osteotomy cut was made once again the knee was irrigated with copious amounts of sterile saline solution the patella was subsequently everted lateralward thickened scar tissue around the patella was removed the patella was subsequently cut utilizing a freehand technique and was drilled prepared for final preparation and placement of pat edgar socially flexion-extension gaps were checked and the equal and symmetric trials were placed to the appropriate femoral and tibial trials with poly-spacer being placed for equal flexion and extension gaps and full range of motion including extension to 0 and flexion to 140 the trial components after having been taken to recovery range of motion was subsequently removed meticulous hemostasis was obtained and maintained subsequently a knee block injection of joint cocktail including ropivacaine 0.5% 150 mg. Bupivacaine 0.5% epinephrine 1-200,030 mL's toradol 30 mg dexamethasone 4 mg ketamine 10 mg clonidine 100 micrograms normal saline solution 30 mg was infiltrated into the soft tissues of the posterior knee medial lateral gutters and periosteal synovium special attention was paid to protect neurovascular structures at all times subsequently trial components having been removed the knee was irrigated with sterile saline solution. debris was removed the proximal tibia was subsequently prepared and was made ready for the placement of the tibial component tibial component was also cemented and tamped into position the femoral component was subsequently placed and cemented in the position the patellar component was subsequently cemented in position because hemostasis once again obtained and maintained wound having been thoroughly irrigated with debridement and debridement lavage was performed as well as a medial parapatellar incision closed with #1 Vicryl in interrupted fashion subcutaneous was closed with #2 Vicryl skin was closed with skin clips. PA-C was necessary for prepping and drapping as well as wound closure of deep fascia Sub cutaneous tissue and skin and was necessary for the case. A sterile compressive dressing was placed patient was taken to recovery in stable condition of report dictated by [place] I attest to the content of the Intraoperative Record and any orders documented therein. Any exceptions are noted below. I attest to the content of the Intraoperative Record and any orders documented therein. Any exceptions are noted below.
--- NOTE | 2019-04-04 10:40 | XRay Report ---
XR knee LT 1 or 2V routine HISTORY: 68 years-old Male Surgical Post Op left knee total joint arthroplasty. History of degenerat ivette joint disease COMPARISON: None TECHNIQUE: 2 views of the left knee FINDINGS: Left knee total joint arthroplasty and patella resurfacing. Anterior midline skin rosanna are noted a long with expected postsurgical soft tissue swelling and deep tissue air with surgical drainage natalia ter. No acute fracture, malalignment or retained foreign body. IMPRESSION: Left knee total joint arthroplasty with expected postoperative findings. ACT 112: Negative or not required by law. The above report was generated using voice recognition software. It may contain grammatical, syntax o r spelling errors. Electronically signed by: Grady Colbert M.D. 04/04/2019 10:39 AM
[2019-04-04] MEDS ORDERED: bisacodyL 10 MG SUPP PR PRN (11:29)
[2019-04-04] MEDS ORDERED: HYDROmorphone INJ 0.5 MG/0.5 ML SYR IV PRN (11:29)
[2019-04-04] MEDS ORDERED: NALOXONE HCL 0.4 MG/1 ML VIAL/CARP IV PRN (11:29)
[2019-04-04] MEDS ORDERED: METOCLOPRAMIDE HCL INJ 5 MG/ML 2 ML VIAL IV PRN (11:29)
[2019-04-04] MEDS ORDERED: MAGNESIUM HYDROXIDE SUSP 30 ML UDC PO PRN (11:29)
--- NOTE | 2019-04-04 11:40 | Anesthesiology Progress Note ---
Date of Service April 04, 2019 Anesthesia Post Procedure Vital Signs Vital Signs: Temp Pulse Pulse Resp BP Pulse Ox 04/04/19 11:30 36.5 C 69 18 146/73 H 99 04/04/19 10:53 36.3 C L 69 14 122/61 97 04/04/19 10:40 70 21 114/52 L 97 04/04/19 10:30 77 18 107/58 L 95 04/04/19 10:20 78 22 120/55 L 99 04/04/19 10:13 37.2 C 88 16 112/49 L 97 04/04/19 06:46 36.6 C 65 18 143/84 H 97 Pain Intensity Left Knee: Pain Intensity: 0 Transfer of Care Handoff Completed per policy Notes Mental Status: alert / awake / arousable Patient Amnestic to Procedure: Yes Nausea / Vomiting: adequately controlled Pain: adequately controlled Airway Patency, RR, SpO2: stable & adequate BP & HR: stable & adequate Hydration State: stable & adequate Neuraxial Anesthesia: was administered and sensory block is resolving Anesthetic Complications: no major complications apparent
[2019-04-04] MEDS: SODIUM CHLORIDE 0.9% 1000ML 1,000 ML IV SCH ×2 (13:06→22:42)
[2019-04-04] MEDS: ACETAMINOPHEN 500 MG TAB PO SCH ×2 (13:07→21:17)
[2019-04-04] MEDS: CEFAZOLIN 2000MG 2,000 MG/15 ML SYR IV SCH (15:52)
[2019-04-04] MEDS: FERROUS GLUCONATE 324 MG TAB PO SCH (18:39)
[2019-04-04] MEDS: DOCUSATE SODIUM 100 MG CAP PO SCH (20:28)
[2019-04-04] MEDS: SENNA 8.6 MG TAB PO SCH (20:28)
[2019-04-04] MEDS: SIMVASTATIN 20 MG TAB PO SCH (20:28)
[2019-04-04] MEDS: LISINOPRIL/HCTZ 20/12.5MG 1 TAB TAB PO SCH (20:29)
[2019-04-04] MEDS: ASPIRIN 81 MG ECTAB PO SCH (20:29)
[2019-04-05] MEDS: CEFAZOLIN 2000MG 2,000 MG/15 ML SYR IV SCH (00:17)
[2019-04-05] MEDS: ACETAMINOPHEN 500 MG TAB PO SCH ×3 (05:02→20:49)
[2019-04-05 06:21] LABS: Hematocrit (blood only) 36.3 % (42-52); Hemoglobin 12.5 g/dL (14.0-18.0); Mean Corpuscular Hemoglobin 29.5 pg (25-34); Mean Corpuscular Hgb Conc 34.4 g/dL (32-36); Mean Corpuscular Volume 85.6 fL (80-100); Mean Platelet Volume 11.4 fL (7.4-10.4); Platelet Count 172 K/uL (130-400); RDW Coefficient of Variation 14.8 % (11.5-14.5); RDW Standard Deviation 45.9 fL (36.4-46.3); Red Blood Count 4.24 M/uL (4.7-6.1); White Blood Count 16.34 K/uL (4.8-10.8)
[2019-04-05 06:49] LABS: Calcium 8.7 mg/dl (8.5-10.1); Creatinine Clr Calc Pharmacy 71.1 ml/min; Est GFR (African American) 73.3; Est GFR (Non-African American) 63.3; Potassium 3.7 mmol/L (3.5-5.1)
--- NOTE | 2019-04-05 07:10 | Orthopedic Progress Note ---
Date of Service April 05, 2019 Assessment & Plan (1) History of total left knee replacement: POD #1 s/p Left TKA pt/ot dvt proph with MALVIN/SCD/ASA plan for d/c home with HHPT, recheck after PT Today. Subjective POD #1 s/p Left TKA Review of Systems Constitutional: no fever, no chills and no sweats Respiratory: no cough and no dyspnea Cardiovascular: no chest pain and no dyspnea Gastrointestinal: no abdominal pain, no nausea and no vomiting Physical Exam Physical Exam: Vital Signs Temp 36.4 C L 04/05/19 03:10 Pulse 62 04/05/19 03:10 Resp 16 04/05/19 03:10 BP 105/56 L 04/05/19 03:10 Pulse Ox 96 04/05/19 03:10 Intake & Output 04/04/19 04/05/19 04/05/19 18:59 06:59 18:59 Intake Total 2150 / 3350.000 1200.000 / 3350.00 0 Output Total 540 / 1815 1275 / 1815 Balance 1610 / 1535.000 -75.000 / 1535.000 Weight 96.388 kg Intake: IV 500 / 2179.365 3105.000 / 1500.00 0 Lr 1,000 ml @ 15 mls/hr IV . 300 / 300 Q24H [facility] Rx#:[id number] Nss 1000ML 1,0 00 ml @ 100 mls/ 1000.000 / 1000.00 0 hr IV .Q10H SC [facility] Rx#:[id number] TRANEXAMIC ACI D / 0.7% NACL 1, 200 / 200 000 mg In 100 ml @ 600 mls/hr IV TODAY@0600 [facility] Rx#:[id number] IV Perioperative 800 / 800 Oral 850 / 1050 200 / 1050 Output: Urine 425 / 1250 825 / 1250 Estimated Blood Loss 5 / 5 Drain Output 110 / 560 450 / 560 Left Knee Hemo vac 110 / 560 450 / 560 Constitutional: WD/WN, vitals as above no acute distress Musculoskeletal: Left Leg: NVDI, calf SNT, negative nicol sign. DP palpable, able to wiggle toes/ankle movement without difficulty. dressing clean dry and intact. Results & Data ([facility]) Vital Signs (Past 12 Hours) Vital Signs Temp Pulse Resp BP BP Pulse Ox 04/05/19 03:10 36.4 C L 62 16 105/56 L 96 04/04/19 23:04 36.4 C L 60 16 102/59 L 92/52 L 95 04/04/19 19:37 36.5 C 65 16 109/67 97 Laboratory Results Laboratory Results WBC 16.34 K/uL (4.8-10.8) H 04/05/19 06:07 RBC 4.24 M/uL (4.7-6.1) L 04/05/19 06:07 Hgb 12.5 g/dL (14.0-18.0) L 04/05/19 06:07 Hct 36.3 % (42-52) L 04/05/19 06:07 MCV 85.6 fL (80-100) 04/05/19 06:07 MCH 29.5 pg (25-34) 04/05/19 06:07 MCHC 34.4 g/dL (32-36) 04/05/19 06:07 RDW Std Deviation 45.9 fL (36.4-46.3) 04/05/19 06:07 RDW Coeff of Francis 14.8 % (11.5-14.5) H 04/05/19 06:07 Plt Count 172 K/uL (130-400) 04/05/19 06:07 MPV 11.4 fL (7.4-10.4) H 04/05/19 06:07 Immature Gran % (Auto) 0.5 % 03/13/19 13:50 Neut % (Auto) 51.0 % 03/13/19 13:50 Lymph % (Auto) 37.0 % 03/13/19 13:50 [place] % (Auto) 6.3 % 03/13/19 13:50 Eos % (Auto) 4.5 % 03/13/19 13:50 Baso % (Auto) 0.7 % 03/13/19 13:50 Immature Gran # (Auto) 0.04 K/uL (0.00-0.02) H 03/13/19 13:50 Neut # (Auto) 3.81 K/uL (1.4-6.5) 03/13/19 13:50 Lymph # (Auto) 2.77 K/uL (1.2-3.4) 03/13/19 13:50 Kemper # (Auto) 0.47 K/uL (0.11-0.59) 03/13/19 13:50 Eos # (Auto) 0.34 K/uL (0-0.5) 03/13/19 13:50 Baso # (Auto) 0.05 K/uL (0-0.2) 03/13/19 13:50 PT 10.9 Seconds (9.0-12.0) 03/13/19 13:50 INR 1.1 (0.9-1.1) 03/13/19 13:50 APTT 25.4 Seconds (21.0-31.0) 03/13/19 13:50 PTT Ratio 0.9 03/13/19 13:50 Sodium 139 mmol/L (136-145) 04/05/19 06:07 Potassium 3.7 mmol/L (3.5-5.1) 04/05/19 06:07 Chloride 107 mmol/L (98-107) 04/05/19 06:07 Carbon Dioxide 25 mmol/L (21-32) 04/05/19 06:07 Anion Gap 7.0 (3-11) 04/05/19 06:07 BUN 25 mg/dl (7-18) H 04/05/19 06:07 Creatinine 1.19 mg/dl (0.6-1.4) 04/05/19 06:07 Est Cr Clr Drug Dosing 71.1 ml/min 04/05/19 06:07 Est GFR ( Amer) 73.3 04/05/19 06:07 Est GFR (Non-Af Amer) 63.3 04/05/19 06:07 BUN/Creatinine Ratio 21.0 (10-20) H 04/05/19 06:07 Glucose 133 mg/dl (70-99) H 04/05/19 06:07 Estimat Average Glucose 126 mg/dl 03/13/19 13:50 Hemoglobin A1c 6.0 % (4.5-5.6) H 03/13/19 13:50 Calcium 8.7 mg/dl (8.5-10.1) 04/05/19 06:07 Albumin 3.6 gm/dl (3.4-5.0) 03/13/19 13:50 Urine Color Yellow 03/13/19 Unknown Urine Appearance Clear (Clear) 03/13/19 Unknown Urine pH 7.0 (4.5-7.5) 03/13/19 Unknown Ur Specific [place] 1.016 (1.000-1.030) 03/13/19 Unknown Urine Protein Negative (Negative) 03/13/19 Unknown Urine Glucose (UA) Negative (Negative) 03/13/19 Unknown Urine Ketones Negative (Negative) 03/13/19 Unknown Urine Blood Negative (Negative) 03/13/19 Unknown Urine Nitrite Negative (Negative) 03/13/19 Unknown Urine Bilirubin Negative (Negative) 03/13/19 Unknown Urine Urobilinogen Negative (Negative) 03/13/19 Unknown Ur Leukocyte Esterase Negative (Negative) 03/13/19 Unknown Blood Type O Positive 03/13/19 13:50 Antibody Screen NEGATIVE 03/13/19 13:50 Diagnostic Findings XR knee LT 1 or 2V routine HISTORY: 68 years-old Male Surgical Post Op left knee total joint arthroplasty. History of degenerative joint disease COMPARISON: None TECHNIQUE: 2 views of the left knee FINDINGS: Left knee total joint arthroplasty and patella resurfacing. Anterior midline skin rosanna are noted along with expected postsurgical soft tissue swelling and deep tissue air with surgical drainage catheter. No acute fracture, malalignment or retained foreign body. IMPRESSION: Left knee total joint arthroplasty with expected postoperative findings.
--- NOTE | 2019-04-05 08:28 | Anesthesiology Progress Note ---
Date of Service April 05, 2019 Anesthesia Post Procedure Vital Signs Vital Signs: Temp Pulse Pulse Pulse Resp BP BP 04/05/19 07:09 36.5 C 63 16 99/67 L 04/05/19 03:10 36.4 C L 62 16 105/56 L 04/04/19 23:04 36.4 C L 60 16 102/59 L 92/52 L 04/04/19 19:37 36.5 C 65 16 109/67 04/04/19 15:31 36.5 C 70 14 97/59 L 04/04/19 14:00 36.6 C 72 16 89/49 L 04/04/19 12:58 72 16 99/59 L 04/04/19 12:00 36.6 C 73 14 90/51 L 04/04/19 11:30 36.5 C 69 18 146/73 H 04/04/19 11:00 36.9 C 66 16 125/74 04/04/19 10:53 36.3 C L 69 14 122/61 04/04/19 10:40 70 21 114/52 L 04/04/19 10:30 77 18 107/58 L 04/04/19 10:20 78 22 120/55 L 04/04/19 10:13 37.2 C 88 16 112/49 L Pulse Ox 04/05/19 07:09 97 04/05/19 03:10 96 04/04/19 23:04 95 04/04/19 19:37 97 04/04/19 15:31 99 04/04/19 14:00 97 04/04/19 12:58 99 04/04/19 12:00 99 04/04/19 11:30 99 04/04/19 11:00 99 04/04/19 10:53 97 04/04/19 10:40 97 04/04/19 10:30 95 04/04/19 10:20 99 04/04/19 10:13 97 Pain Intensity Left Knee: Pain Intensity: 0 Notes Mental Status: alert / awake / arousable and participated in evaluation Patient Amnestic to Procedure: Yes Nausea / Vomiting: adequately controlled Pain: adequately controlled Airway Patency, RR, SpO2: stable & adequate BP & HR: stable & adequate Hydration State: stable & adequate Neuraxial Anesthesia: was administered and sensory block resolved Anesthetic Complications: no major complications apparent and Pt Satisfied with anesthetic care
[2019-04-05] MEDS: LISINOPRIL/HCTZ 20/12.5MG 1 TAB TAB PO SCH ×2 (08:44→20:49)
[2019-04-05] MEDS: DOCUSATE SODIUM 100 MG CAP PO SCH ×2 (08:44→20:49)
[2019-04-05] MEDS: FERROUS GLUCONATE 324 MG TAB PO SCH ×2 (08:44→17:48)
[2019-04-05] MEDS: CHOLECALCIFEROL 1,000 UNITS 25 MCG TAB PO SCH (08:44)
[2019-04-05] MEDS: MULTIVITAMIN TAB PO SCH (08:44)
[2019-04-05] MEDS: ASPIRIN 81 MG ECTAB PO SCH ×2 (08:44→20:49)
[2019-04-05] MEDS: OXYCODONE HCL IR 5 MG TAB (IMMEDIATE RELEASE) PO PRN ×3 (11:37→22:40)
--- NOTE | 2019-04-05 14:06 | Hospitalist Progress Note ---
Date of Service April 05, 2019 Assessment & Plan (1) Allergic reaction: uncertain etiology but reassuring: has been going on for hours, is within the confines of what is his normal pattern (and better than some past reactions, and has no respiratory symptoms), is improving. unclear inciting factor but given that he's had similar reactions with no clear exposure (motel) -- ?sheets or detergent? regardless appears quite safe for home - will return kiet if he were to show any respiratory symptoms but it is highly unlikely at this point. can continue benadryl 25mg q4hr prn but would not feel the need for him to take it scheduled. leukocytosis - likely perioperative reactive rise - but outpt CBC ~1-2wks for completeness appearing quite safe/stable for home from hospitalist perspective Subjective asked to see in regards to face flushing and lip swelling. very pleasant patient who briefly used to be a patient of mine in the office years ago. notes that he had onset of face flushing mid morning, followed by lip swelling later as the morning progressed. now ongoing for ~4hrs. actually did PT when symptoms were worse - no ANDERSON no stridor tao felt OK except for flushing and lip feeling like it's swelling. got benadryl and feels that he is clearly improving. never had stridor/sob/etc. notes he does get similar allergic reactions quite frequently - most commonly with cats (although he noted that he checked and did not locate any cats in his hospital room), but also has had happen fairly randomly at times - including a similar but worse reaction once at a motel years ago where his face swelled so much his said he would be unrecognizable. no breathing problems then either. 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 nothing like that today - no throat itching or anything else characteristic of a serious reaction. he feels fine overall - feeling much better since benadryl, and would very much like to go home. Review of Systems Review of Systems: All systems reviewed & are unremarkable except as noted in HPI & below Physical Exam Physical Exam: gen - aaox3 pleasant nad heent nc at mmm. face bright red and flushed without edema. no visible lip swelling (although he notes it was improved). no stridor. heartrate normal @ 77 lungs cta b/l no r/r/w good effort no accessory muscles no conversational dyspnea no stridor; 100% on room air while conversing quite freely skin -as above with face, no other rashes noted no wheals. neuro - cn 2-12 grossly intact gross motor and sensory intact mental - good recent and remote recall normal mood and affect Results & Data ([facility]) Vital Signs (Past 12 Hours) Vital Signs Temp Pulse Pulse Resp BP BP Pulse Ox 04/05/19 11:42 97.7 F 122/76 04/05/19 08:41 70 108/66 04/05/19 07:09 97.7 F 63 16 99/67 L 97 04/05/19 03:10 97.5 F L 62 16 105/56 L 96 PG Care Time/CCT Total # of Minutes Spent Total Time Spent with Patient: Total time spent is greater than 50% in coordinat ion of care (as documented) at patient's floor/unit and/or counseling patient: Coding Level of Care Code 44659 Subseq Hosp Care Lvl 3 Diagnoses Allergic reaction T78.40XA
[2019-04-05] MEDS: SIMVASTATIN 20 MG TAB PO SCH (20:49)
[2019-04-05] MEDS: SENNA 8.6 MG TAB PO SCH (20:49)
[2019-04-06] MEDS: OXYCODONE HCL IR 5 MG TAB (IMMEDIATE RELEASE) PO PRN ×2 (04:42→08:53)
[2019-04-06] MEDS: ACETAMINOPHEN 500 MG TAB PO SCH (05:22)
[2019-04-06] MEDS: FERROUS GLUCONATE 324 MG TAB PO SCH (08:25)
[2019-04-06] MEDS: DOCUSATE SODIUM 100 MG CAP PO SCH (08:25)
[2019-04-06] MEDS: CHOLECALCIFEROL 1,000 UNITS 25 MCG TAB PO SCH (08:27)
[2019-04-06] MEDS: ASPIRIN 81 MG ECTAB PO SCH (08:27)
[2019-04-06] MEDS: MULTIVITAMIN TAB PO SCH (08:27)
[2019-04-06] MEDS: LISINOPRIL/HCTZ 20/12.5MG 1 TAB TAB PO SCH (08:27)
--- NOTE | 2019-04-06 08:51 | Orthopedic Progress Note ---
Date of Service April 06, 2019 Assessment & Plan (1) History of total left knee replacement: POD #2 s/p Left TKA Plan for dressing change and removal of Hemovac. pt/ot dvt proph with MALVIN/SCD/ASA plan for d/c home today after a.m. PT. Subjective Postop day 2 status post left total knee arthroplasty. Patient is sitting up in bed eating his breakfast. Awake and alert. He has no complaints this morning. He states that he had some flushing of his cheeks yesterday with swelling of his lips which has now dissipated. He has been seen by medicine service as well as orthopedic service and basically has been cleared to go home. He has no new complaints. He states that the swelling has gone down considerably and he has not had any more signs of this returning. His pain is controlled in his left knee. Denies any shortness of breath, chest pain, lightheadedness. Physical Exam Physical Exam: Dressings are clean, dry, and intact. Calves are soft and nontender. Neurovascular is intact. Foot and ankle is mobile with good sensation. VAC drainage was 100 from the previous shift. Results & Data ([facility]) Vital Signs (Past 12 Hours) Vital Signs Temp Pulse Pulse Resp BP Pulse Ox 04/06/19 07:50 36.7 C 67 19 108/67 96 04/05/19 22:32 36.8 C 63 16 108/66 97
== END 2019-04-06 13:18 | disposition home health service (06) | DRG 470 ==
LOC: ASU 06:01 → 3E 10:20